=== PATIENT | female | born 1995 | race African-American/Black ===

== ENCOUNTER 2020-03-20 08:45 | Emergency (ER) | payer OTHER ==
[~2020-03-20] VITALS: Ht 160 cm; Wt 63.5 kg
[2020-03-20 10:00] VITALS: BP 125/88
[2020-03-20] MEDS ORDERED: IBU600 MG PO (10:02)
[2020-03-20] MEDS ORDERED: NORCO 5-325 TA1 EAC2 PO (10:02)
== END 2020-03-20 10:00 | disposition home or self-care (01) ==
LOC: ER 08:45
DX: H20.9 Unspecified iridocyclitis (principal); R51 Headache

== ENCOUNTER 2020-03-23 13:37 | Emergency (ER) | payer OTHER ==
[~2020-03-23] VITALS: Ht 160 cm; Wt 63.5 kg
[~2020-03-23 13:37] MED LIST: IBU600 MG PO; NORCO 5-325 TA1 EAC2 PO
[2020-03-23 13:44] VITALS: BP 106/76
[2020-03-23] MEDS ORDERED: CYCLOPENTOLA1 %/2 M1 OPHTHALMIC (14:23)
== END 2020-03-23 14:36 | disposition home or self-care (01) ==
LOC: ER 13:37
DX: H20.9 Unspecified iridocyclitis (principal); Z79.1 Long term (current) use of non-steroidal anti-inflammatories (NSAID); Z79.899 Other long term (current) drug therapy

== ENCOUNTER 2020-04-02 14:12 | Emergency (ER) | payer OTHER ==
[~2020-04-02] VITALS: Ht 162.6 cm; Wt 63.5 kg
[~2020-04-02 14:12] MED LIST changes: +CYCLOPENTOLA1 %/2 M1 OPHTHALMIC
[2020-04-02] MEDS ORDERED: TOBRADEX EYE DRO5 ML OPHTHALMIC (15:18)
[2020-04-02 16:05] VITALS: BP 101/71
== END 2020-04-02 16:45 | disposition home or self-care (01) ==
LOC: ER 14:12
DX: S05.01XD Injury of conjunctiva and corneal abrasion without foreign body, right eye, subsequent encounter (principal); Z79.899 Other long term (current) drug therapy; W22.8XXD Striking against or struck by other objects, subsequent encounter